=== PATIENT | male | born 1960 | race Caucasian/White ===

== ENCOUNTER 2018-01-01 16:51 | Outpatient (REF) | payer BC, SELFPAY ==
[2018-01-01 21:12] LABS: Cholesterol 200 mg/dL (50-200); HDL Cholesterol 40 mg/dL (40-60); LDL CHOLESTEROL 130 mg/dL (<100); Triglyceride 157 mg/dL (30-150)
[2018-01-04 14:48] LABS: Hepatitis C Ab w Rflx HCV PCR Negative (NEGAT)
== END 2018-01-01 17:11 ==
LOC: NCHCN 16:51
PROVIDERS: PCP Nurse Practitioner Family; Visit Provider Nurse Practitioner Family
DX: R73.03 Prediabetes (principal); I10 Essential (primary) hypertension; E66.9 Obesity, unspecified; Z11.59 Encounter for screening for other viral diseases
CPT/HCPCS: 80061; 83721; 86803

== ENCOUNTER 2018-03-16 16:30 | Outpatient (REF) | payer BC, SELFPAY ==
[2018-03-16 21:10] LABS: Anion Gap 11.6 mmol/L (3-11); BUN 27 mg/dL (7-18); CO2 25.4 mmol/L (21.0-32.0); CREATININE 1.18 mg/dL (0.70-1.30); Calcium 9.2 mg/dL (8.5-10.1); Chloride 103 mmol/L (98-107); Glucose 96 mg/dL (70-100); Potassium 3.9 mmol/L (3.5-5.1); Sodium 140 mmol/L (136-145)
== END 2018-03-16 16:50 ==
LOC: NCHCN 16:30
PROVIDERS: PCP Nurse Practitioner Family; Visit Provider Nurse Practitioner Family
DX: I10 Essential (primary) hypertension (principal)
CPT/HCPCS: 80048

== ENCOUNTER 2019-12-15 09:29 | Outpatient (REF) | payer BC, SELFPAY ==
[2019-12-15 20:49] LABS: Hemoglobin A1C 6.9 % (<5.7)
[2019-12-15 20:59] LABS: Calculated LDL 110 mg/dL (<100); Cholesterol 194 mg/dL (<200); HDL Cholesterol 30 mg/dL (40-60); Triglyceride 273 mg/dL (<150)
== END 2019-12-15 09:49 ==
LOC: NCHCN 09:29
PROVIDERS: PCP Nurse Practitioner Family; Visit Provider Nurse Practitioner Family
DX: R73.03 Prediabetes (principal); I10 Essential (primary) hypertension; M10.9 Gout, unspecified; M25.561 Pain in right knee; E66.9 Obesity, unspecified
CPT/HCPCS: 80061; 83036

== ENCOUNTER 2021-05-03 09:02 | Outpatient (REF) | payer BC, SELFPAY ==
--- NOTE | 2021-05-03 08:14 | SKI_PTH ---
PATIENT: Jonah Guillory LOC: NCN #:[id number] AGE/SX: 60/M ROOM: RE05/03/[address]: Alda Lockett : 1960 BED: DIS: 05/03/2021 SPEC #: [id number] RECD: 05/03/21 17:12 STATUS: ISABEL FARRAR #: [id number] BRUNO: 05/03/21 08:[address]: Alda Lockett DEPT: Surgical Specimen RECD BY: Lyn Mendieta Tissues: 1 - SKIN BIOPSY(SHAVE/PUNCH) Procedures: SKIN LEVEL 4 Comments: [id number]
== END 2021-05-03 09:03 | disposition home or self-care (01) ==
LOC: NCHCN 09:02
PROVIDERS: PCP Nurse Practitioner Family; Visit Provider Nurse Practitioner Family
DX: C44.622 Squamous cell carcinoma of skin of right upper limb, including shoulder (principal)
CPT/HCPCS: 88305

== ENCOUNTER 2021-11-15 17:16 | Outpatient (REF) | payer BC, SELFPAY ==
[2021-11-15 16:30] LABS: Anion Gap 9.7 mmol/L (3-11); BUN 17 mg/dL (7-18); CO2 25.3 mmol/L (21.0-32.0); CREATININE 1.2 mg/dL (0.70-1.30); Calculated LDL 123 mg/dL (<100); Chloride 103 mmol/L (98-107); Cholesterol 191 mg/dL (<200); Glucose 121 mg/dL (74-106); HDL Cholesterol 42 mg/dL (40-60); Potassium 4.4 mmol/L (3.5-5.1); Sodium 138 mmol/L (136-145); Triglyceride 132 mg/dL (<150)
== END 2021-11-15 17:17 | disposition home or self-care (01) ==
LOC: NCHCN 17:16
PROVIDERS: PCP Nurse Practitioner Family; Visit Provider Nurse Practitioner Family
DX: I10 Essential (primary) hypertension (principal); R73.03 Prediabetes; I25.10 Atherosclerotic heart disease of native coronary artery without angina pectoris; E66.9 Obesity, unspecified
CPT/HCPCS: 80048; 80061

== ENCOUNTER 2023-12-14 03:16 | Outpatient (CLI) | payer MEDICAID, SELFPAY ==
[2023-12-14 08:41] LABS: ALT 40 U/L (16-63); AST < 5 U/L (15-37); Albumin 4.1 g/dL (3.4-5.0); Alkaline Phosphatase 74 U/L (46-116); Anion Gap 8.8 mmol/L (3-11); BUN 18 mg/dL (7-18); Bilirubin, Total 0.57 mg/dL (0.2-1.0); CO2 28.2 mmol/L (21.0-32.0); CREATININE 1.1 mg/dL (0.70-1.30); Calcium 9.1 mg/dL (8.5-10.1); Calculated LDL 102 mg/dL (<100); Chloride 102 mmol/L (98-107); Cholesterol 200 mg/dL (<200); Glucose 158 mg/dL (74-106); HDL Cholesterol 38 mg/dL (40-60); Potassium 4.4 mmol/L (3.5-5.1); Sodium 139 mmol/L (136-145); Total Protein 7.7 g/dL (6.4-8.2); Triglyceride 302 mg/dL (<150)
[2023-12-14 09:26] LABS: COMMENT (LAB VIEW ONLY) 146.73 mg/dL; Microalb ug/mg Crea 24.9 ug/mg Cr
== END 2023-12-14 03:17 | disposition home or self-care (01) ==
LOC: LBO 03:17
PROVIDERS: PCP Nurse Practitioner Family; Visit Provider Nurse Practitioner Family
DX: E11.9 Type 2 diabetes mellitus without complications (principal)
CPT/HCPCS: 36415; 80053; 80061; 82043; 82570

== ENCOUNTER 2024-03-15 17:41 | Outpatient (REF) | payer MEDICAID, SELFPAY ==
[2024-03-15 15:44] LABS: ALT 54 U/L (16-63); AST 17 U/L (15-37); Albumin 4.2 g/dL (3.4-5.0); Alkaline Phosphatase 76 U/L (46-116); Anion Gap 10.7 mmol/L (3-11); BUN 20 mg/dL (7-18); Bilirubin, Total 0.91 mg/dL (0.2-1.0); CO2 26.3 mmol/L (21.0-32.0); CREATININE 1.2 mg/dL (0.70-1.30); Calcium 9.3 mg/dL (8.5-10.1); Chloride 105 mmol/L (98-107); Estimated GFR 67.95 (mL/min/1.73m2); Glucose 170 mg/dL (74-106); Potassium 4.6 mmol/L (3.5-5.1); Sodium 142 mmol/L (136-145); Total Protein 7.5 g/dL (6.4-8.2)
[2024-03-15 16:02] LABS: Calculated LDL 123 mg/dL (<100); Cholesterol 209 mg/dL (<200); HDL Cholesterol 46 mg/dL (40-60); Triglyceride 203 mg/dL (<150)
--- OUTSIDE RECORDS SUMMARY | 2024-03-15 17:46 | XMS_ITS | Encounter Summary ---
[facility] [place] [address] Care Team Providers Care Clean Out Driller Helper Name Role Phone Gerber Alfred MD Primary Care Provider [phone] Encounter Details Date Type Department Care Team (Late st Contact Info) Description 12/05/2013 [place] [address] Gen Escobedo Jr., MD [facility] [place] [address] Kidney stone (Primary Dx) Social History Tobacco Use Types Packs/Day Years Used Date Smoking Tobacco: Never Assessed Sex and Gender Information Value Date Recorded Sex Assigned at Not on file Gender Identity Not on file Sexual Orientation Not on file documented as of this encounter Plan of Treatment Not on file documented as of this encounter Visit Diagnoses Diagnosis Kidney stone- Primary Calculus of kidney documented in this encounter Care Teams Clean Out Driller Helper Relationship Specialty Start Date End Date Gerber Alfred MD [address] [place], [place] [id number] PCP - General 11/06/13 05/29/21 documented as of this encounter
--- OUTSIDE RECORDS SUMMARY | 2024-03-15 17:46 | XMS_ITS | Clinical Summary ---
Author Organization [facility] [place] [address] Care Team Providers Care Social Service Technician Name Role Phone Alda Lockett APRN Primary Care Provider [phone] Allergies No known active allergies Medications Medication Sig Dispensed Refills Start Date End Date Status OXYcodone 5 mg capsule Take 5 mg by mouth every 4 hours as needed. Active allopurinol (ZYLOPRIM) 300 mg tablet Take 300 mg by mouth daily. Active Active Problems No known active problems Social History Tobacco Use Types Packs/Day Years Used Date Smoking Tobacco: Never Assessed Sex and Gender Information Value Date Recorded Sex Assigned at Not on file Gender Identity Not on file Sexual Orientation Not on file Last Filed Vital Signs Vital Sign Reading Time Taken Comments Blood Pressure 151/95 11/07/2013 3:06 AM EDT Pulse 88 11/07/2013 3:06 AM EDT Temperature 36.7 ??C (98.1 ??F) 11/07/2013 3:06 AM ED T Respiratory Rate 18 11/06/2013 9:42 PM EDT Oxygen Saturation 96% 11/07/2013 3:06 AM EDT Inhaled Oxygen Concentration - - Weight - - Height - - Body Mass Index - - Plan of Treatment Health Maintenance Due Date Last Done Comments CT Colonography 1960 Colonoscopy 1960 Colorectal Cancer Screening 1960 FIT DNA 1960 FIT 1960 Sigmoidoscopy (10 year) with FIT yearly 1960 Sigmoidoscopy 1960 HIV screen 1978 Hepatitis C Screening 1978 Lipid Screening 1978 Tetanus/Diphtheria/Pertussis Vaccines (1 - Tdap) 12/29 Zoster vaccine (1 of 2) 2010 Advance Directive 12/30/2015 Covid-19 Vaccine (1 - 2023- season) 2023 Influenza (Flu) vaccine (1 o f 1 - Influenza standard series) 12/20/2023 Care Teams Social Service Technician Relationship Specialty Start Date End Date Alda Lockett, DATA OPERATIONS MANAGER [address] [place], [place] [id number] PCP - General Family Medicine 05/30/21
--- OUTSIDE RECORDS SUMMARY | 2024-03-15 17:46 | XMS_ITS | Clinical Summary ---
Author Organization [facility] Address [address] [place] [address] Care Team Providers Care Party Director Name Role Phone Unknown, Provider Primary Care Provider Unava ilable Social History Tobacco Use Types Packs/Day Years Used Date Smoking Tobacco: Never Assessed Sex and Gender Information Value Date Recorded Sex Assigned at Not on file Legal Sex Male 23:30 EST Gender Identity Not on file Sexual Orientation Not on file Plan of Treatment Health Maintenance Due Date Last Done Comments Hepatitis C Screen 1960 COVID-19 Vaccine (2023-25 season) 2023 RSV Immunization ( o r 60+ Years) (1 - 1-dose 75+ series) 12/30/2035 Insurance [facility] Care Teams Party Director Relationship Specialty Start Date End Date Unknown, Provider, PCP - General 04/20/21
--- OUTSIDE RECORDS SUMMARY | 2024-03-15 17:46 | XMS_ITS | Encounter Summary ---
Author Organization [facility] Address [address] [place] [address] Care Team Providers Care Meat Apprentice Name Role Phone Unknown, Provider Primary Care Provider Unava ilable Encounter Details Date Type Department Care Team (Late st Contact Info) Description 05/03/2021 Lab Requisition [facility] Pathology & Laboratory Medicine - [facility] [address] [place] [address] Alda Lockett, METAL MIXER [facility] [address] [place] [id number] Encounter for other general examination Social History Tobacco Use Types Packs/Day Years Used Date Smoking Tobacco: Never Assessed Sex and Gender Information Value Date Recorded Sex Assigned at Not on file Legal Sex Male 23:30 EST Gender Identity Not on file Sexual Orientation Not on file documented as of this encounter Plan of Treatment Not on file documented as of this encounter Procedures Procedure Name Priority Date/Time Associated Diagnosis Comments SURGICAL PATHOLOGY Today 05/03/2021 8: 14 EST Encounter for other general examination documented in this encounter Results * SURGICAL PATHOLOGY (05/03/2021 8:14 EST) Note to Patient The following pathology results have been interpreted by your pathologist and may be available to you before your health provider has had the opportunity to review them. Please allow time for your provider to receive these results and explore management options, if applicable. 05/06/2021 9:46 EST [facility] Final Diagnosis A. SKIN OF SHOULDER, RIGHT POSTERIOR, PUNCH BIOPSY: - Squamous cell carcinoma in situ, involving peripheral edges. 05/06/2021 9:46 EST [facility] Attestation By the signature below, the attending physician certifies that they have 1) personally conducted a gross and/or microscopic examination of the described specimen(s), and/or personally interpreted the results of laboratory testing of the described specimen(s), and 2) personally rendered or confirmed the above diagnosis. 05/06/2021 9:46 [facility] at 0946 Clinical History Skin lesion, 2 toned, crusty, irregular border x1 yr 05/06/2021 9:46 [facility] Gross Description A. Received in formalin labelled with proper patient identification (initials R, R) and R posterior shoulder is a punch biopsy of pale miller-white roughened skin (0.6 cm in diameter and 0.4 cm in thickness). Bisected and submitted in A1. Jorge Chapa 05/05/2021 11:08 05/06/2021 9:46 [facility] Performing Lab [facility] 05/06/2021 9:46 [facility] Scanned Images 05/06/2021 9:46 [facility] Tissue TISSUE SPECIMEN FROM SKIN / Unknown 05/03/2021 8:14 EST 05/03/2021 23:32 EST us Alda Lockett METAL MIXER PATHOLOGY ORDERABLES Evelyn l Result Performing Organization Address City/State/[facility] Co de Phone Number [facility] [address] [place] [address] documented in this encounter Visit Diagnoses Diagnosis Encounter for other general examination documented in this encounter Care Teams Meat Apprentice Relationship Specialty Start Date End Date Unknown, Provider, PCP - General 04/20/21 documented as of this encounter
--- OUTSIDE RECORDS SUMMARY | 2024-03-15 17:46 | XMS_ITS | Encounter Summary ---
Author Organization [facility] [place] [address] Care Team Providers Care Application Integration Architect Name Role Phone Gerber Alfred MD Primary Care Provider Encounter Details Date Type Department Care Team (Late st Contact Info) Description 11/07/2013 [place] [address] Crow Tobin MD [facility] [place] [address] Social History Tobacco Use Types Packs/Day Years Used Date Smoking Tobacco: Never Assessed Sex and Gender Information Value Date Recorded Sex Assigned at Not on file Gender Identity Not on file Sexual Orientation Not on file documented as of this encounter Miscellaneous Notes * Telephone Encounter - Crow Tobin - 11/07/2013 11:32 AM EDT Patient seen at the ED overnight for a stone. He is not a patient of us. Called to check on him. Noanswer He needs to be seen as a NPW documented in this encounter Plan of Treatment Not on file documented as of this encounter Visit Diagnoses Not on filedocumented in this encounter Care Teams Application Integration Architect Relationship Specialty Start Date End Date Gerber Alfred MD [address] [place] [address] PCP - General 11/06/13 05/29/21 documented as of this encounter
--- OUTSIDE RECORDS SUMMARY | 2024-03-15 17:46 | XMS_ITS | Encounter Summary ---
Author Organization [facility] Address [facility] [place] [address] Care Team Providers Care Desktop Architect Name Role Phone Gerber Alfred MD Primary Care Provider [phone] Encounter Details Date Type Department Care Team (Late st Contact Info) Description 12/02/2013 [place] [address] eGn Escobedo Jr., MD [facility] [place] [address] Social History Tobacco Use Types Packs/Day Years Used Date Smoking Tobacco: Never Assessed Sex and Gender Information Value Date Recorded Sex Assigned at Not on file Gender Identity Not on file Sexual Orientation Not on file documented as of this encounter Plan of Treatment Not on file documented as of this encounter Visit Diagnoses Not on filedocumented in this encounter Care Teams Desktop Architect Relationship Specialty Start Date End Date Gerber Alfred MD [address] [place], [place] [address] PCP - General 11/06/13 05/29/21 documented as of this encounter
--- OUTSIDE RECORDS SUMMARY | 2024-03-15 17:46 | XMS_ITS | Encounter Summary ---
Author Organization [facility] Address [facility] [place] [address] Care Team Providers Care Plaster Lather Name Role Phone Alda Lockett APRN Primary Care Provider [phone] Reason for Visit * Consultation (Routine) - Closed Specialty Diagnoses / Procedures Referred By Johnna augustin Referred To Contact Dermatology Diagnoses Carcinoma in situ of skin, unspecified SCCa in Situ; New Patient-Notes Received Procedures Consult Alda Lockett APRN [address] [place] [address] Jovani Brannon MD [address] [place] [address] Referral ID Status Reason Start Date Expiration Date V isits Requested Visits Authorized [id number] Closed Consult, Test & Treat PCP Updated and/or Approved 05/27/2021 05/27/2022 12 12 Encounter Details Date Type Department Care Team (Latest Contact Info) Description 06/13/2021 2:00 PM EST Procedure visit Dermatology at [facility] [address] [place] [address] Jovani Brannon MD [address] [place] [address] Squamous cell carcinoma in situ (SCCIS) of skin of right shoulder Social History Tobacco Use Types Packs/Day Years Used Date Smoking Tobacco: Never Assessed Sex and Gender Information Value Date Recorded Sex Assigned at Not on file Gender Identity Not on file Sexual Orientation Not on file documented as of this encounter Progress Notes * Jovani Brannon MD - 06/13/2021 2:00 PM EST Patient Name: Jonah Guillory Age: 60 y.o. Date of : 1960 Today's Date: 06/13/2021 REFERRING PROVIDER: Alda Lockett HPI: Jonah Guillory is a 60 y.o. male presenting for excision of squamous cell carcinoma, in situ, location on the right posterior shoulder. The dermatologic preoperative information sheet was reviewed with pertinent positive and negative as below. DERMATOLOGIC PRE-OPERATIVE EVALUATION AND REVIEW OF SYSTEMS Pacemaker/Defibrillator? no Joint replacement or other implantable devices (e.g. Cochlear implant)? If yes then when? no Do you take a blood thinner? No History of artificial valve or stroke? no History of liver disease or bleeding disorder? no Do you have any medical problems that may affect your upcoming surgery? no ALLERGIES: Allergies reviewed MEDICATIONS: Medications reviewed Signed: Abdelrahman Be CMA * Jovani Brannon MD - 06/13/2021 2:00 PM EST Images from the original note were not included. Dermatologic Surgery Operative Report (Procedure: Excision with intermediate layered Closure) Patient Name: Jonah Guillory Date of : 1960 Visit date: 06/13/2021 STAFF SURGEON: Jovani Brannon MD Resident Surgeon: Latanya Tucker MD ASSISTANTS: Anisa Delgado RN, Charley Coburn CMA, Sarah Marrero LPN, Abdelrahman Be CMA, Kylah Storey CMA, Maddison Jensen RN Preoperative Diagnosis: squamous cell carcinoma in situ Postoperative Diagnosis: Same as above Pathology: Submitted for permanent pathology. Pending. Lesion Site (location): right posterior shoulder Pre-operative size (cm): 0.8 x 0.8 cm Circumferential Margins Obtained: 0.4 cm Final Defect size or Total Excision Diameter (the lesion plus margins): 1.6 x 1.6 cm Final Length of closure: 4.0 cm Total anesthesia volume used for today: 2.0 cc 1% lidocaine with 1:100,000 epinephrine INDICATION REMOVAL. PROCEDURE Excision with intermediate layered closure. Prior to the procedure, final verification of the patient identity and correct marked surgical sitewas performed. Timeout was performed. PREOPERATIVE MEDICATION: [x] None Anesthesia used was 1% lidocaine with 1:100,000 epinephrine. The skin was prepped in a sterile fashion with with 2% chlorhexidine. The lesion was excised with clinically tumor-free margins in a fusiform fashion through the skin and through the subcutaneous tissue. The wound edges were trimmed as needed, and hemostasis was obtained with electrocoagulation. Due to wound size, the wound edges were closed in a intermediate layered fashion with Vicryl 3.0 subcutaneous sutures and Prolene 3.0 skin sutures. Postoperative length: 4.0 cm. Estimated blood loss: Minimal. Complications: None. Wound care: Routine. Specimen sent to Dermatopathology. Biopsy report is pending. Preoperative and postoperative photographs below: Suture removal in 14 days. POST-OPERATIVE MEDICATIONS: [x] NONE Note initiated by MARANDA Graves CMA has performed the documentation for this encounter in the presence of and acting as a scribe for Dr. Brannon I performed the above scribed service and agree with the accuracy of the documentation in this encounter. 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 Location: [facility] The signing pathologist has (i) examined the relevant preparation(s) for the specimen(s) and (ii) rendered or confirmed the diagnosis(es). . ?Surgical Pathology DIAGNOSIS Right posterior shoulder, excision: - Residual ??squamous cell carcinoma in situ, margins negative - Incidental ??intradermal melanocytic nevus, margins negative - ??Dermal scar and procedure site changes Electronically signed by: ?Mariangel IBRAHIM, Eduard Myrick Verified: ??06/18/2021 14:55 ??Dermatopatholog ist Performed at: ??[facility] Dept. of Pathology, [place], [place] SPECIMEN(S) SUBMITTED A - Right posterior shoulder, excision (1) CLINICAL INFORMATION Biopsy proven SCCIS, please check margins. See media for relevant pathology SPECIMEN PROCESSING A - Labeled/Fixative: Right posterior shoulder, formalin. Quantity/Size: ??Single, 1.8 x 1.5 x 1.0 cm. Tissue Description: Ovoid, silva-white skin excision with a central 0.4 x 0.2 cm pink red macule and surrounding 1.4 x 1.0 cm irregular patch of white discoloration. A single orienting suture is present designated specimen tag at 9 o'clock. Inkin-6-9 o 'clock is marked black. ??9-12-3 o'clock is marked blue. Sections/Processi ng: Serially sectioned and entirely submitted in 5 cassettes as follows: ?A1: ??9 o'clock tip ?A2-A3: ??[place] red macule and surrounding patent discoloration ?A4: ??Normal-appearin g skin ?A5: ??3 o'clock tip ??shb 06/18/2021 2:55 PM EST [facility] SPECIMEN FROM SKIN / Unknown 06/13/2021 3:21 PM EST 06/13/2021 3:21 PM EST Jovani Brannon MD PATHOLOGY/[place] [address] * Specimen to Pathology (06/13/2021 3:21 PM EST) AP Specimen 06/13/2021 3:21 PM EST 06/13/2021 3:21 PM EST Narrative [facility] - 06/13/2021 3:21 PM EST Specimen requisition ordered. 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
--- OUTSIDE RECORDS SUMMARY | 2024-03-15 17:46 | XMS_ITS | Referral Summary ---
Author Organization [facility] Address [address] [place] [address] Care Team Providers Care Peripheral Vascular Tech Name Role Phone Unknown, Provider Primary Care Provider Unava ilable Social History Tobacco Use Types Packs/Day Years Used Date Smoking Tobacco: Never Assessed Sex and Gender Information Value Date Recorded Sex Assigned at Not on file Legal Sex Male 23:30 EST Gender Identity Not on file Sexual Orientation Not on file Plan of Treatment Not on [place] [address] [place] [address] Care Teams Peripheral Vascular Tech Relationship Specialty Start Date End Date Unknown, Provider, PCP - General 04/20/21
--- OUTSIDE RECORDS SUMMARY | 2024-03-15 17:46 | XMS_ITS | Encounter Summary ---
[place] [address] Care Team Providers Care Bow Machine Operator Name Role Phone Gerber Alfred MD Primary Care Provider Reason for Referral * Consultation (Routine) - Complete - Patient Will Schedule External Appt Specialty Diagnoses / Procedures Referred By Johnna augustin Referred To Contact Urology Cuauhtemoc Jang MD [facility] [place] [address] [facility] [place] [address] Referral ID Status Reason Start Date Expiration Date Visits Requested Visits Authorized [id number] Complete - Patient Will Schedule External Appt Assume Subset of Care 11/07/2013 05/06/2014 1 1 Reason for Visit * Reason Comments Flank Pain Encounter Details Date Type Department Care Team (Late st Contact Info) Description 11/06/2013 9:35 PM EDT - 11/07/2013 3:15 AM EDT [place] [phone] Selene Bautista MD [facility] [place] [address] Kidney stone Discharge Disposition: DP-Discharged Social History Tobacco Use Types Packs/Day Years Used Date Smoking Tobacco: Never Assessed Sex and Gender Information Value Date Recorded Sex Assigned at Not on file Gender Identity Not on file Sexual Orientation Not on file documented as of this encounter Last Filed Vital Signs Vital Sign Reading Time Taken Comments Blood Pressure 151/95 11/07/2013 3:06 AM EDT Pulse 88 11/07/2013 3:06 AM EDT Temperature 36.7 ??C (98.1 ??F) 11/07/2013 3:06 AM ED T Respiratory Rate 18 11/06/2013 9:42 PM EDT Oxygen Saturation 96% 11/07/2013 3:06 AM EDT Inhaled Oxygen Concentration - - Weight - - Height - - Body Mass Index - - documented in this encounter Discharge Instructions * Discharge Instructions* Cuauhtemoc Jang MD - 11/07/2013 2:54 AM EDT The pain you are experiencing is likely due to the kidney stone that was previously diagnosed. The ultrasound taken today showed evidence that the kidney stone is still present. You have no concerning symptoms for infection or other complications of the stone. Kidney stones usually pass on their own with adequate hydration and pain control. Please keep taking your previously prescribed pain medications. We are going to contact urology to schedule a follow up appointment and to discuss further treatment and management of your kidney stone. If you do not hear from them tomorrow, please call [facility] and ask to be connected with urology to make an appointment. Please return to the emergency department if you experience worsening pain, fevers, chills, blood in your urine, or any other concerning sign or symptom. * Attachments The following attachments cannot be sent through Care Everywhere. * KIDNEY STONE (VIETNAMESE) * KIDNEY STONE DIET (VIETNAMESE) * GOUT (VIETNAMESE) documented in this encounter Medications at Time of Discharge Medication Sig Dispensed Refills Start Date End Date OXYcodone 5 mg capsule Take 5 mg by mouth every 4 hours as needed. allopurinol (ZYLOPRIM) 300 mg tablet Take 300 mg by mouth daily. documented as of this encounter ED Notes * Ree Suh RN - 11/07/2013 3:12 AM EDT Patient verbalizes readiness to go home. STONE D/C'd. Reviewed D/C documents with patient and who verbalized understanding. VSS. Patient ambulatory with steady gait. No complaints and NAD noted upon D/C to home via private car accompanied by and mother. * Ree Suh RN - 11/07/2013 2:28 AM EDT Patient resting comfortably on stretcher, no apparent distress noted. States he feels about the same. VSS. Call kline in reach. * Ree Suh RN - 11/07/2013 1:54 AM EDT Patient to US via stretcher with no apparent distress noted. Denies needs at this time. * Ree Suh RN - 11/07/2013 1:13 AM EDT Patient resting comfortably on stretcher with no apparent distress noted. VSS. Call kline in reach. * Selene Bautista MD - 11/07/2013 12:00 AM EDT Jonah Guillory is an 52 y.o. male who presents to the ED with: Chief Complaint Patient presents with ??? Flank Pain I saw this patient 11/07/2013 at 0001hrs HPI Jonah Guillory is a 52 y.o. male with a history of gout and left renal stone diagnosed 5 weeks ago ([place]) who presents to the Emergency Department with left flank pain. Images at his prior visit showed a 5 x 6mm stone in the left proximal ureter at the level of the inferior pole of the kidney. He was given allopurinol and oxycodone and sent home in hopes that the stone would pass spontaneously. He did not consistently strain his urine and is unsure if the stone has passed. His symptoms were largely resolved after this initial visit, until yesterday morning when he woke up with return of left sided flank pain. It comes and goes, radiates down into his groin, and is associated with nausea. It is the same pain that he felt beforehand, but in a lower position. He has had one episode ofvomiting. He denies blood fevers, chills, dysuria, hematuria, diarrhea. He has had slightly reducedPO intake since this AM. This is the first renal stone he has had. Review of Systems: Review of Systems Constitutional: Negative for fever and chills. Respiratory: Negative for cough, chest tightness and shortness of breath. Cardiovascular: Negative for chest pain and leg swelling. Gastrointestinal: Positive for nausea and vomiting. Negative for abdominal pain, diarrhea, blood instool and abdominal distention. Left sided flank pain Genitourinary: Positive for flank pain. Negative for dysuria and hematuria. Skin: Negative for rash. Neurological: Negative for dizziness and headaches. Physical Exam: Patient Vitals for the past 24 hrs: BP Temp Temp src Pulse Resp SpO2 11/06/13 2349 - - - 74 - - 11/06/13 2347 156/96 mmHg - - - - 97 % 11/06/13 2142 178/108 mmHg 36.7 ??C (98.1 ??F) Oral 99 18 99 % Physical Exam Constitutional: He is oriented to person, place, and time. He appears well- developed and well-nourished. No distress. HENT: Head: Normocephalic and atraumatic. Cardiovascular: Normal rate, regular rhythm and normal heart sounds. No murmur heard. Pulmonary/Chest: Effort normal and breath sounds normal. Abdominal: Soft. There is no tenderness. There is no rebound and no guarding. Genitourinary: Mild left flank tenderness Musculoskeletal: He exhibits no edema. Neurological: He is alert and oriented to person, place, and time. Skin: Skin is warm and dry. No erythema. ED Course/ MDM - Patient was evaluated and discussed with Dr. Michele Conde I reviewed medications, allergies and past medical history significant for gout. Medical records obtained from [facility], 5 x6 mm stone in left ureter - Labs significant for trace protein and glucose in UA, no LE or Nitrates. Serum WBC 14.8 - Bedside US performed by me: mild hydronephrosis on left side, unable to compare since no US was obtained at [place] - KUB obtained to see if stone had migrated. I could not see a stone in the ureter, though the image seemed to be of poor quality - Comprehensive US performed confirming mild left hydronephrosis with no evidence of hydroureter. The patient was reassessed. He was pain free throughout his stay in the ED and did not require any medications. Given his recent history of renal stones and uncertainty as to whether he passed his previous one, it seems likely that this episode represents migration of the stone down into the distal ureter. Only one stone was documented in the OSH CT report. There was no mention of stones within the kidney, so the likelihood that this is a new stone is low. Despite a mildly elevated white count, clinically he does not exhibit signs of infection or anything that would make me worried about infection. Givenhis clinical picture he was discharged with instructions to continue on his previous regimen of oxycodone and allopurinol. I have put in a request to urology so that he can get follow up and discuss further options if this stone fails to pass. Return precautions were verbally discussed with the patient and written in discharge instructions. The patient expressed understanding that he could come back to the ED at any time and agreed to the follow-up plan. Plan: - Discharge home - Follow up with urology Condition at Discharge: stable Cuauhtemoc Jang MD Resident 11/07/13 1140 ED ATTENDING ADDENDUM: The patient was seen in conjunction with Dr. Jang, the resident physician. I have independently performed the childs portions of the history and physical exam. I have reviewed all diagnostic studies personally including labs, imaging studies and EKG's. I have discussed the details of the case with the resident and agree with the assessment and plan as described in the resident note above unless noted otherwise below. Selene Bautista MD 11/08/13 1100 * Ree Suh RN - 11/06/2013 11:44 PM EDT Patient resting comfortably on stretcher, no apparent distress noted. Family in room. VSS. Call kline in reach. * Ree Suh RN - 11/06/2013 10:19 PM EDT Ambulatory to BR with steady gait and no apparent distress noted. Urine sample obtained and sent tolab. * Ree Suh RN - 11/06/2013 10:04 PM EDT Patient lying on stretcher, HOB elevated, in gown, family in room. AA&Ox4. no acute distress noted, airway patent, denies pain, CP, SOB, needs. Skin pink, warm, dry. Respiration even and unlabored, rate and depth WDL. Cap refill brisk. Pulses palpable all extremities. Monitors placed as appropriate. VSS Reinforced NPO status pending dispo patient agreeable. Call kline in reach. documented in this encounter Miscellaneous Notes * Miscellaneous - Provider, Scanning - 11/07/2013 11:30 AM EDT * Discharge Summary - Provider, Scanning - 11/07/2013 8:16 AM EDT * Miscellaneous - Provider, Scanning - 11/06/2013 11:38 PM EDT * ED Triage - Janet Thompson RN - 11/06/2013 9:43 PM EDT Pt presents to ED s/o L flank pain from known kidney stones. Pt was diagnosed with stones at [facility] approx. 1 month ago, given Oxycodone Rx and discharged. Pain returned this AM to L flank, 5/10 pain on L side. Pt reports N/V today, decreased POs. Denies pain with urination and no visible blood in urine today. Skin w/p/d, in NAD. RR even and unlabored. Ambulating with steady gait. documented in this encounter Plan of Treatment Scheduled Referrals Name Type Priority Associated Diagnoses Orde r Schedule Referral to Urology Outpatient Referral Routine Ordered: 11/07/2013 documented as of this encounter Procedures Procedure Name Priority Date/Time Associated Diagnosis Comments US RETROPERITONEAL COMPLETE STAT 11/07/2013 2:17 AM EDT XR ABDOMEN 1 VIEW STAT 11/06/2013 11: 43 PM EDT HEMOGRAM STAT 11/06/2013 10:40 PM EDT DIFFERENTIAL, AUTOMATED STAT 11/07/19 14 10:40 PM EDT CBC (WITH DIFF) STAT 11/06/2013 10:40 PM EDT BASIC METABOLIC PANEL Routine 11/06/2013 10:40 PM EDT URINALYSIS WITH REFLEX CULTURE STAT 11/06/2013 10:30 PM EDT POCT URINE DIPSTICK STAT 11/06/2013 1 0:23 PM EDT documented in this encounter Results * US retroperitoneal complete (11/07/2013 2:17 AM EDT) Anatomical Region Laterality Modality Abdomen Ultrasound 11/07/2013 2:17 AM EDT Narrative 11/07/2013 4:15 AM EDT Examination ULTRASOUND RETROPERITONEAL COMPLETE/US Clinical History left proximal renal stone dx one month ago, now repeat pain and hydro on bedside US Comparison None Findings The right kidney measures 12.5 cm and is normal in echogenicity. ??No hydronephrosis or hydroureter. ??There is normal blood flow. The left kidney measures 12.8 cm and is normal in echogenicity. ??There is mild left hydronephrosis. ??The ureter is not visualized. ??There is normal blood flow. ??No calcifications are noted. ?? The bladder measures 7.5 x 7 x 6.2 cm and is normal in appearance. ??A right ureteral jet was visualized, however a left ureteral jet was not demonstrated. Impression Mild left hydronephrosis without evidence of hydroureter. ??Left ureteral jet was not demonstrated and left ureteral obstruction cannot be completely excluded. Film and interpretation reviewed by the attending Procedure Note Amira Johnson MD - 11/07/2013 Examination ULTRASOUND RETROPERITONEAL COMPLETE/US Clinical History left proximal renal stone dx one month ago, now repeat pain and hydro on bedside US Comparison None Findings The right kidney measures 12.5 cm and is normal in echogenicity. No hydronephrosis or hydroureter. There is normal blood flow. The left kidney measures 12.8 cm and is normal in echogenicity. There ismild left hydronephrosis. The ureter is not visualized. There is normal blood flow. No calcifications are noted. The bladder measures 7.5 x 7 x 6.2 cm and is normal in appearance. Aright ureteral jet was visualized, however a left ureteral jet was notdemonstrated. Impression Mild left hydronephrosis without evidence of hydroureter. Left ureteraljet was not demonstrated and left ureteral obstruction cannot be completely excluded. Film and interpretation reviewed by the attending Selene Bautista MD IMG US GEN ORDERABL ES * XR abdomen 1 view (11/06/2013 11:43 PM EDT) Anatomical Region Laterality Modality Abdomen N/A Radiographic Lexus ging 11/06/2013 11:4 3 PM EDT Narrative 11/07/2013 12:08 AM EDT Examination DIAG ABDOMEN SINGLE VIEW Clinical History stone dx one month ago at OSH, now with repeat pain Comparison None Technique AP supine abdomen radiograph Findings Limited view of the abdomen. There is a nonobstructive bowel gas pattern with air visualized within loops of small and large bowel throughout the visualized abdomen and pelvis. There is no free air. There are no radiopaque densities in the region of the right upper left kidney to suggest renal calculi. Bones unremarkable. Impression Limited images abdomen; Non-obstructive bowel gas pattern. Procedure Note Amira Johnson MD - 11/07/2013 Examination DIAG ABDOMEN SINGLE VIEW Clinical History stone dx one month ago at OSH, now with repeat pain Comparison None Technique AP supine abdomen radiograph Findings Limited view of the abdomen. There is a nonobstructive bowel gas patternwith air visualized within loops of small and large bowel throughout thevisualized abdomen and pelvis. There is no free air. There are no radiopaquedensities in the region of the right upper left kidney to suggest renal calculi. Bones unremarkable. Impression Limited images abdomen; Non-obstructive bowel gas pattern. Selnee Bautista MD IMG DX ORDERABLES * (ABNORMAL) Differential, Automated (11/06/2013 10:40 PM EDT) Neutrophil % 80.0(H) 34.0 - 71.0 % CERNER MILLENNIUM Neutrophil Absolute 11.79(H) 1.50 - 6.30 x10(3)/mc L CERNER MILLENNIUM Lymph % 11.9(L) 19.0 - 53.0 % CERNER MILLENNIUM Lymphocytes Abs 1.8 1.0 - 3.6 x10(3)/mc L CERNER MILLENNIUM Monocyte % 7.2 4.0 - 13.0 % CERNER MILLENNIUM Monocyte Abs 1.1(H) 0.2 - 1.0 x10(3)/mc L CERNER MILLENNIUM Eos % 0.5 0.0 - 7.0 % CERNER MILLENNIUM Eosinophils Abs 0.1 0.0 - 0.5 x10(3)/mc L CERNER MILLENNIUM Basophil % 0.2 0.0 - 2.0 % CERNER MILLENNIUM Baso Absolute 0.0 0.0 - 0.2 x10(3)/mc L CERNER MILLENNIUM Immature Gran % 0.20 0.00 - 0.66 % CERNER MILLENNIUM Comment: Immature granulocytes(IG's)percentage and absolute count will include metamyelocytes, myelocytes, and promyelocytes. Blood smears from CBCs yielding IG's will be scanned manually for concordance. If this scan disagrees with the automated IG or if promyelocytes are noted, a manual differential will be performed. Immature Gran Absolute 0.03 0.00 - 0.05 x10(3)/mc L CERNER MILLENNIUM Blood specimen (specimen) 11/06/2013 10:40 PM EDT 11/06/2013 10:49 PM EDT Narrative Resulting Agency Comment Spec In Lab Eduard Tejeda MD HEMATOLOGY ORDERABLE S Performing Organization Address City/[facility]/ZIP Co de Phone Number MENA WISEENNIUM * (ABNORMAL) Hemogram (11/06/2013 10:40 PM EDT) White Blood Cell 14.8(H) 4.0 - 10.0 x10(3)/mc L CERNER MILLENNIUM Red Blood Cell 5.09 4.63 - 6.08 x10(6)/mc L CERNER MILLENNIUM Hemoglobin 16.9 13.7 - 17.5 gm/dL CERNER MILLENNIUM Hematocrit 47.6 40.0 - 51.0 % CERNER MILLENNIUM Mean Cell Volume 93.5(H) 79.0 - 92.0 fL CERNER MILLENNIUM Mean Cell Hemoglobin 33.2(H) 25.6 - 32.2 pg CERNER MILLENNIUM Mean Cell Hemoglobin Concentration 35.5 32.0 - 36.5 gm/dL CERNER MILLENNIUM Platelet 217 145 - 370 x10(3)/mc L CERNER MILLENNIUM RDW Standard Deviation 44.6 35.0 - 46.0 fL CERNER MILLENNIUM RDW coefficient of variation 13.0 10.9 - 14.4 % CERNER MILLENNIUM Mean Platelet Volume 9.5 9.0 - 12.0 fL CERNER MILLENNIUM Blood specimen (specimen) 11/06/2013 10:40 PM EDT 11/06/2013 10:49 PM EDT Narrative Resulting Agency Comment Spec In Lab Eduard Tejeda MD HEMATOLOGY ORDERABLE S MENA KERNIUM * (ABNORMAL) Basic Metabolic Panel (non-fasting) (11/06/2013 10:40 PM EDT) Glucose 143 60 - 199 mg/dL CERNER MILLENNIUM Comment:Diabetes: >=200 mg/d L plus symptoms Blood Urea Nitrogen 20 10 - 20 mg/dL CERNER MILLENNIUM Creatinine 1.47 0.80 - 1.50 mg/dL CERNER MILLENNIUM Comment: Please note that the pediatric reference intervals supplied above were not validated at [facility]. Results from pediatric patients should be interpreted in conjunction to the patient's age, height and muscle mass. Sodium 136 135 - 145 mmol/L CERNER MILLENNIUM Potassium 3.9 3.5 - 5.0 mmol/L CERNER MILLENNIUM Comment: Please note: ??Patients with WBC >100,000 may have falsely elevated Potassium levels. ??For accurate Potassium quantification in these patients send serum separator tube (gold top) for subsequent determinations. ??Contact the Clinical Chemistry Laboratory if there are any questions. Chloride 100 98 - 107 mmol/L CERNER MILLENNIUM Carbon Dioxide 22 22 - 31 mmol/L CERNER MILLENNIUM Anion Gap 14 5 - 15 mmol/L CERNER MILLENNIUM Calcium 9.3 8.5 - 10.5 mg/dL CERNER MILLENNIUM Est Glomerular Filtration Rate 50(L) >=60 CERNER MILLENNIUM Comment: This estimated GFR (eGFR) value was calculated using the MDRD equation which has been validated on patients between the ages of 18 and 70. The MDRD should not be used to assess kidney function in patients < 18 years of age or in patients with extremes of body mass, or in patients with acute kidney failure. This value should be multiplied by 1.2 for patients. For further information please copy and paste the following links into your internet browser. [email or web address] Blood specimen (specimen) 11/06/2013 10:40 PM EDT 11/06/2013 10:49 PM EDT Narrative Resulting Agency Comment Spec In Lab Eduard Tejeda MD CHEMISTRY ORDERABLES [facility] * (ABNORMAL) Urinalysis with microscopic (11/06/2013 10:30 PM EDT) Glucose, Urine Dipstick Trace(A) Negative mg/dL CERNER MILLENNIUM Protein, Urine Dipstick Trace(A) Negative mg/dL CERNER MILLENNIUM Bilirubin, Urine Dipstick Negative Negative mg/dL CERNER MILLENNIUM Comment: Clinical correlation required for positive Urine Bilirubin results as false positive may occur with some drugs and drug related products. If a false positive is suspected a serum total bilirubin should be considered if clinically indicated. Urobilinogen, Urine Dipstick Normal Normal mg/dL CERNER MILLENNIUM pH, Urn (dipstick) 5.5 5.0 - 8.0 CERNER MILLENNIUM Blood, Urine Dipstick Negative Negative mg/dL CERNER MILLENNIUM Ketone, Urine Dipstick Negative Negative mg/dL CERNER MILLENNIUM Nitrite, Urine Dipstick Negative Negative CERNER MILLENNIUM Leukocytes, Urine Dipstick Negative Negative mcL CERNER MILLENNIUM Appearance, Urine Dipstick Clear Clear CERNER MILLENNIUM Specific Beatty Urine Automated 1.025 1.002 - 1.030 CERNER MILLENNIUM Color, Urine Dipstick Yellow Yellow CERNER MILLENNIUM RBC, Urine 1 0 - 3 /HPF CERNER MILLENNIUM WBC, Urine 1 0 - 3 /HPF CERNER MILLENNIUM Urine specimen (specimen) 11/06/2013 10:30 PM EDT 11/06/2013 10:40 PM EDT Narrative Resulting Agency Comment Spec In Lab Eduard Tejeda MD [facility]LES [facility] * (ABNORMAL) POCT urine dipstick (11/06/2013 10:23 PM EDT) POC Sp Beatty 1.020 1.002 - 1.030 POC pH, UA 5 5.0 - 8.5 POC Leuk, UA NEG Negative - Negative POC Nitrite, UA NEG Negative - Negative POC Protein, UA POS Negative - Negative mg/dL POC Glucose, UA POS Normal - Normal mg/dL POC Ketone, UA NEG Negative - Negative POC Urobil, UA normal 0.2 - 1.0 mg/dL POC Bili, UA NEG Negative - Negative POC Blood, UA POS Negative - Negative jovanni/uL 11/06/2013 10:2 3 PM EDT Eduard Tejeda MD POINT OF CARE TEST O RDERABLES documented in this encounter Visit Diagnoses Diagnosis Kidney stone Calculus of kidney documented in this encounter Care Teams Bow Machine Operator Relationship Specialty Start Date End Date Gerber Alfred MD [address] [place] [address] PCP - General 11/06/13 05/29/21 documented as of this encounter
--- OUTSIDE RECORDS SUMMARY | 2024-03-15 17:46 | XMS_ITS | Encounter Summary ---
Author Organization [facility] [place] [address] Care Team Providers Care Mitering Machine Operator Name Role Phone Alda Lockett ROWDY Primary Care Provider [phone] Encounter Details Date Type Department Care Team (Late st Contact Info) Description 06/27/2021 3:15 PM EST Office Visit Dermatology at [facility] [address] [place] [id number] Jovani Brannon MD [address] [place] [address] Visit for suture removal Social History Tobacco Use Types Packs/Day Years Used Date Smoking Tobacco: Never Assessed Sex and Gender Information Value Date Recorded Sex Assigned at Not on file Gender Identity Not on file Sexual Orientation Not on file documented as of this encounter Progress Notes * Jovani Brannon MD - 06/27/2021 3:15 PM EST Images from the original note were not included. Patient: Jonah Guillory Date of . 1960 Today's Date: 06/27/2021 Jonah Guillory is a 60 y.o. 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 Pathology report showed negative margins. Patient informed of the results. Photograph: Plan: 1. Sutures removed today without complication, steri-strips placed to support wound. 2. Follow up with referring provider or back pad inspector for skin exams. 3. Follow up with Dr. Brannon: as needed. Note initiated by MARANDA Rosas CMA has performed the documentation for this encounter in the presence of and acting as a scribe for Dr. Brannon I performed the above scribed service and agree with the accuracy of the documentation in this encounter. Reviewed and signed by: Jovani Brannon Dermatology [facility] Jovani Brannon MD [facility] Dermatologic Oncology Department of Dermatology [address] [place] [address] documented in this encounter Plan of Treatment Not on file documented as of this encounter Visit Diagnoses Diagnosis Visit for suture removal Encounter for removal of sutures documented in this encounter Care Teams Mitering Machine Operator Relationship Specialty Start Date End Date Alda Lockett APRN [address] [place] [address] PCP - General Family Medicine 05/30/21 documented as of this encounter
== END 2024-03-15 17:42 | disposition home or self-care (01) ==
LOC: NCHCN 17:41
PROVIDERS: PCP Nurse Practitioner Family; Visit Provider Nurse Practitioner Family
DX: I10 Essential (primary) hypertension (principal); I25.10 Atherosclerotic heart disease of native coronary artery without angina pectoris
CPT/HCPCS: 80053; 80061

== ENCOUNTER 2024-11-03 13:15 | Outpatient (REF) | payer MEDICAID, SELFPAY ==
--- NOTE | 2024-11-03 09:33 | SKI_PTH ---
PATIENT: Jonah Guillory LOC: [facility] U#:[id number] AGE/SX: 63/M ROOM: RE11/03/[address]: Umair Aldana MD : 1960 BED: DIS: 11/03/2024 SPEC #: [id number] RECD: 11/03/24 18:09 STATUS: ISABEL REHarpreet #: [id number] BRUNO: 11/03/24 09:[address]: Umair Aldana DEPT: Surgical Specimen RECD BY: Lyn Mendieta ENTERED: 11/03/24 18:10 SP TYPE: NANDINI GARCIAS DR: Alda Lockett Tissues: 1 - SKIN BIOPSY(SHAVE/PUNCH) Procedures: SKIN LEVEL 4 Comments: [id number]
== END 2024-11-03 13:16 | disposition home or self-care (01) ==
LOC: LBN 13:15
PROVIDERS: PCP Nurse Practitioner Family; Visit Provider Otolaryngology
DX: B07.9 Viral wart, unspecified (principal)
CPT/HCPCS: 88305

== ENCOUNTER 2024-11-23 08:47 | Outpatient (REF) | payer MEDICAID, SELFPAY ==
[2024-11-23 15:41] LABS: ALT 67 U/L (16-63); AST 20 U/L (15-37); Albumin 4.2 g/dL (3.4-5.0); Alkaline Phosphatase 69 U/L (46-116); Anion Gap 8.8 mmol/L (3-11); BUN 19 mg/dL (7-18); Bilirubin, Total 0.7 mg/dL (0.2-1.0); CO2 27.2 mmol/L (21.0-32.0); Calcium 9.6 mg/dL (8.5-10.1); Calculated LDL 148 mg/dL (<100); Chloride 101 mmol/L (98-107); Cholesterol 239 mg/dL (<200); Estimated GFR 84.57 (mL/min/1.73m2); Glucose 161 mg/dL (74-106); HDL Cholesterol 38 mg/dL (>or=40); Potassium 5.3 mmol/L (3.5-5.1); Sodium 137 mmol/L (136-145); Total Protein 7.4 g/dL (6.4-8.2); Triglyceride 266 mg/dL (<150)
[2024-11-23 15:50] LABS: Hemoglobin A1C 6.6 % (<5.7)
[2024-11-23 16:07] LABS: COMMENT (LAB VIEW ONLY) 64.91 mg/dL; Microalb ug/mg Crea 18.8 ug/mg Cr
== END 2024-11-23 08:48 | disposition home or self-care (01) ==
LOC: NCHCN 08:47
PROVIDERS: PCP Nurse Practitioner Family; Visit Provider Nurse Practitioner Family
DX: E11.9 Type 2 diabetes mellitus without complications (principal); I10 Essential (primary) hypertension
CPT/HCPCS: 80053; 80061; 82043; 82570; 83036

== ENCOUNTER 2025-01-02 11:33 | Outpatient (REF) | payer MEDICAID, SELFPAY ==
[2025-01-02 14:56] LABS: Anion Gap 7.7 mmol/L (3-11); BUN 17 mg/dL (7-18); CO2 29.3 mmol/L (21.0-32.0); Calcium 9.3 mg/dL (8.5-10.1); Chloride 100 mmol/L (98-107); Estimated GFR 95.37 (mL/min/1.73m2); Glucose 200 mg/dL (74-106); Potassium 4.9 mmol/L (3.5-5.1); Sodium 137 mmol/L (136-145)
== END 2025-01-02 11:34 | disposition home or self-care (01) ==
LOC: NCHCN 11:33
PROVIDERS: PCP Nurse Practitioner Family; Visit Provider Nurse Practitioner Family
DX: E87.5 Hyperkalemia (principal)
CPT/HCPCS: 80048

== ENCOUNTER 2025-03-31 08:00 | Outpatient (RCR) | payer SELFPAY ==
--- NOTE | 2025-04-03 08:30 | RT.EKG_ITS ---
APPROVED REPORT Exam: Resting ECG Reason for Exam: cardiac rehab basesline Patient Location: O HR:97 bpm ECG Measurements Heart Rate 97 AXIS MI 171 P 28 QRSd 103 QRS 109 QT 374 T 6 QTc 475 Conclusion Sinus rhythm...normal P axis, V-rate 50- 99 Right axis deviation...QRS axis ( 91,269) Baseline wander in lead(s) III,V3,V4,V5,V6
== END 2025-04-19 23:59 | disposition home or self-care (01) ==
LOC: CR 08:00
PROVIDERS: PCP Nurse Practitioner Family; Visit Provider Internal Medicine Cardiovascular Disease
DX: I21.4 Non-ST elevation (NSTEMI) myocardial infarction (principal); Z95.2 Presence of prosthetic heart valve; Z51.89 Encounter for other specified aftercare
CPT/HCPCS: S9472

== ENCOUNTER 2025-04-19 08:00 | Outpatient (RCR) | payer SELFPAY | END 2025-04-19 23:59 | disposition home or self-care (01) | LOC: CR 08:00 | PROVIDERS: PCP Nurse Practitioner Family; Visit Provider Internal Medicine Cardiovascular Disease | DX: I21.4 Non-ST elevation (NSTEMI) myocardial infarction (principal); Z95.2 Presence of prosthetic heart valve; Z51.89 Encounter for other specified aftercare | CPT/HCPCS: S9472 ==